=== PATIENT | male | born 2000 | race Caucasian/White ===

== ENCOUNTER 2022-04-30 15:23 | Outpatient (CLI) | payer BC, SELFPAY ==
[2022-04-30 21:31] LABS: Albumin* 4.9 g/dL (3.3-5.0); Chloride* 104 mmol/L (96-114); Potassium* 4.3 mmol/L (3.6-5.1); Sodium* 139 mmol/L (135-149)
[2022-04-30 21:33] LABS: Bilirubin Total* 0.9 mg/dL (0.1-1.5); Carbon Dioxide* 28 mmol/L (20-32); Estimated Glomerular Filt Rate 109 ml/min
[2022-04-30 21:34] LABS: Alanine Aminotransferase* 29 U/L (4-50); Alkaline Phosphatase* 50 U/L (40-150); Aspartate Amino Transferase* 29 U/L (12-35); Blood Urea Nitrogen* 14 mg/dL (5-24); Glucose* 82 mg/dL (60-115); Total Protein* 7.4 g/dL (6.0-8.3)
[2022-04-30 21:44] LABS: Vitamin D 25 Hydroxy* 32 ng/mL (30-80)
[2022-04-30 22:02] LABS: Ferritin* 20.1 ng/mL (17.9-464.0)
[2022-04-30 22:22] LABS: Vitamin B12* 626 pg/mL (243-894)
== END 2022-04-30 15:24 | disposition home or self-care (01) ==
PROVIDERS: PCP Family Medicine; Visit Provider Physician Assistant Medical
DX: R40.0 Somnolence (principal)
CPT/HCPCS: 80053; 82306; 82607; 82728; 84443